=== PATIENT | female | born 1995 | race Caucasian/White ===

== ENCOUNTER 2018-01-25 19:45 | Emergency (ER) | payer OTHER ==
--- NOTE | 2018-01-25 20:16 | ER Report ---
History and Physical Time Seen By MD: 19:53 Hx. of Stated Complaint: CUT RIGHT HAND FIRST FINGER ON AIR DISPATCHER, SLICE IS FLAT ON OUTER ASPECT OF FINGER PT STATES "I THINK HALF MY NAIL IS GONE. " PRESSURE DRESSING APPLIED HPI/ROS CHIEF COMPLAINT: Laceration HISTORY OF PRESENT ILLNESS: This is a 22-year-old female presents to the emergency department for a laceration. Patient states that she was using a meat boner and slicer approximately 5:30 this evening when the door some of her right index finger got stuck in the slicer did slice off a large portion of the distal finger. Patient arrives with a large bulky dressing that is soaked with blood. The patient is alert and oriented. No aches or chills. Patient states she does have some pain to the distal part of the finger no other fingers or extremities and vault. No recent fevers, aches or chills. REVIEW OF SYSTEMS: Respiratory: No cough, no dyspnea. Cardiovascular: No chest pain, no palpitations. Gastrointestinal: No vomiting, no abdominal pain. Musculoskeletal: No back pain. Integumentary: As above. Allergies: Coded Allergies: No Known Allergies (Verified Allergy, Unknown, 01/25/18) Home Meds Active Scripts Hydrocodone Bit/Acetaminophen (NORCO 5-325 TABLET) 1 Each Tablet, 1 EACH PO Q4- 6H Y for PAIN, #8 TAB 0 Refills Prov:OMID CISSE [facility]- 01/25/18 Cephalexin 500 Mg Tab (KEFLEX 500 MG TAB) 500 Mg Tablet, 500 MG PO Q6H, #28 TAB 0 Refills Prov:OMID CISSE [facility]- 01/25/18 Past Medical/Surgical History The patient has a past medical and surgical history of meniscus repair. Reviewed Nurses Notes: Yes Hx Substance Use Disorder: No Hx Alcohol Use: Yes (OCC) Constitutional Vital Sign - Last 24 Hours 01/25/18 01/25/18 01/25/18 01/25/18 19:45 19:50 19:52 20:31 Temp 98.8 Pulse ??? 78 60 Resp 14 16 B/P (MAP) 145/98 145/98 (114) 130/81 (97) Pulse Ox 97 97 O2 Delivery Room Air Room Air 01/25/18 20:31 B/P (MAP) 130/81 (97) Intake and Output 01/25/18 01/25/18 01/26/18 15:00 23:00 07:00 Intake Total 100 ml Balance 100 ml Physical Exam General Appearance: The patient is alert, has no immediate need for airway protection and no current signs of toxicity. Eyes: Pupils equal and round no injection. Respiratory: Chest is non tender, lungs are clear to auscultation. Cardiac: regular rate and rhythm. Gastrointestinal: Abdomen is soft and non tender, no masses, bowel sounds normal. Musculoskeletal: Neck: Neck is supple and non tender. Extremities have full range of motion and are non tender. Skin: There is a large avulsion/laceration wound to the dorsum of the right index finger from the PIP to the tip of the finger with the medial half of the nail missing. When dressing is removed bleeding is not controlled there is a moderate volume of blood that is bleeding from the wound. Extension and flexion intact. CMS intact. DIFFERENTIAL DIAGNOSIS: After history and physical exam differential diagnosis was considered for open bony injury, tendon laceration, avulsion of the bone and vascular injury. 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 COMPARISON: None. FINDINGS: PA, lateral and oblique views of the right hand are obtained. Bones: No acute fracture. Joint spaces: Negative. Hardware: None. Alignment: Normal. Soft tissues: Bandages about the second finger limit soft tissue evaluation. IMPRESSION: No acute right hand fracture. Report Dictated By: Bert Ribeiro MD at 01/25/2018 8:44 PM Report E-Signed By: Bert Ribeiro MD at 01/25/2018 8:46 PM WSN:[id number] ED Course/Re-evaluation Clinical Indication for ER IV: IV Access ED Course The patient was admitted to room. A history physical were obtained. Differential diagnoses were considered. An IV was started. 1 g of Ancef was given. X-ray of the right index finger showing no bony involvement. I did review the results with the patient. The wound was repaired as noted below. A dressing was applied to the finger, it was splinted with an aluminum splint in the extended position. The patient was instructed to follow-up with [facility] within 1-2 days for reevaluation and further wound repair and therapy of the finger, she will likely need to have short term wound care too. She was started on Keflex. The patient had no other questions or concerns at this time is discharged home. Tetanus was updated. Procedure: Laceration repair. Verbal consent was obtained from the patient. The 4cm laceration/skin avulsion on the right index finger from the PIP to the tip of the finger, through the nail and nail matrix, approximately 1cm wide at the widest point, was anesthetized by digital block, using 1%lidocaine with Epinephrine then locally with 1% lidocaine without epinephrine. The wound was scrubbed, draped and explored to its base with a gloved finger. There were deep structures involved. No tendon injury was identified, flexion and extension intact. The wound was repaired with 2, 5-0 Vicryl internal mattress sutures, 1, 4-0 Vicryl mattress suture, 3, 5-0 Ethilon mattress sutures which did significantly reduce the bleeding, down to an slow ooze. The wound was not approximated but significant improvement. The wound repair was complex. The procedure was performed by myself and Dr. Rivas. Decision to Disposition Date: Jan 25, 2018 Decision to Disposition Time: 21:47 Depart Departure Latest Vital Signs Vital Signs Date Time Temp Pulse Resp B/P (MAP) Pulse Ox O2 Delivery O2 Flow Rate FiO2 01/25/18 20:31 130/81 (97) 01/25/18 20:31 60 16 97 Room Air 01/25/18 19:50 98.8 Impression: Primary Impression: Avulsion of skin of index finger Additional Impression: Laceration of index finger Condition: Improved Disposition: HOME OR SELF-CARE Referrals: [facility] 2 Days New Scripts Hydrocodone Bit/Acetaminophen (NORCO 5-325 TABLET) 1 Each Tablet 1 EACH PO Q4-6H Y for PAIN, #8 TAB 0 Refills Prov: [facility] 01/25/18 Cephalexin 500 Mg Tab (KEFLEX 500 MG TAB) 500 Mg Tablet 500 MG PO Q6H, #28 TAB 0 Refills Prov: OM[facility] 01/25/18 Patient Instructions: Acute Wound Care (ED), Finger Laceration (ED) Additional Instructions: Contact [facility] tomorrow for a follow-up evaluation either tomorrow or Tuesday. Keep the dressing and the splint on until he follows with [facility]. Be sure to keep the dressing clean and dry. Take Tylenol for pain. Take the pain medication as prescribed. If taking the narcotic pain medication do not take Tylenol too. Take the antibiotics as prescribed. Monitor for signs of infection such as redness, swelling and drainage. Return to the emergency department for any other concerns or worsening symptoms. Problem Qualifiers Primary Impression: Avulsion of skin of index finger Encounter type: initial encounter Qualified Codes: S61.208A - Unspecified open wound of other finger without damage to nail, initial encounter Additional Impression: Laceration of index finger Encounter type: initial encounter Damage to nail status: with damage Foreign body presence: without foreign body Laterality: right Qualified Codes: S61.310A - Laceration without foreign body of right index finger with damage to nail, initial encounter OM[facility] CISSEP[facility] Jan 25, 2018 20:16
[2018-01-25] MEDS ORDERED: DIPHTH/TETANUS/ACEL. PERTUSSIS IM ONLY ONE (20:20)
[2018-01-25] MEDS ORDERED: ceFAZolin 1 GM VIAL IVP ONE (20:45)
--- NOTE | 2018-01-25 20:49 | RADIOLOGY IMAGING REPORT ---
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 COMPARISON: None. FINDINGS: PA, lateral and oblique views of the right hand are obtained. Bones: No acute fracture. Joint spaces: Negative. Hardware: None. Alignment: Normal. Soft tissues: Bandages about the second finger limit soft tissue evaluation. IMPRESSION: No acute right hand fracture. Report Dictated By: Bert Ribeiro MD at 01/25/2018 8:44 PM Report E-Signed By: Bert Ribeiro MD at 01/25/2018 8:46 PM WSN:[id number]
[2018-01-25] MEDS ORDERED: NS(*) 0.9% 100 ML BAG 100 ML ONE (21:14)
[2018-01-25] MEDS ORDERED: CEPH500T7 PO (21:33)
[2018-01-25 21:43] VITALS: BP 123/94
[2018-01-25] MEDS ORDERED: HYDR-4309 PO (21:48)
[2018-01-25] MEDS ORDERED: ACET/HYDROC 5/325MG TH ER ONLY 2 TAB/BOTTLE PO ONE (21:50)
== END 2018-01-25 22:05 | disposition home or self-care (01) ==
LOC: ER 20:03
DX: S61.210A Laceration without foreign body of right index finger without damage to nail, initial encounter (principal); S61.208A Unspecified open wound of other finger without damage to nail, initial encounter; W45.8XXA Other foreign body or object entering through skin, initial encounter
CPT/HCPCS: 12042; 90471; 90715; 96374; 99284; J0690; J7050